=== PATIENT | male | born 1980 | race Hispanic/Latino ===

== ENCOUNTER 2020-09-19 22:41 | Emergency (ER) | payer MEDICAID, SELFPAY ==
[2020-09-19 22:45] VITALS: BP 119/79; PULSE 120; RESP 24; TEMP 37; O2SAT 100
--- NOTE | 2020-09-19 23:12 | PC.NURSE ---
Pt denies CP or SOB at this time.
--- NOTE | 2020-09-19 23:25 | ECG_ITS ---
Measurements Intervals [place] Rate: 117 P: 76 MN: 123 QRS: 62 QRSD: 88 T: 60 QT: 292 QTc: 409 Interpretive Statements SINUS TACHYCARDIA DELAYED PRECORDIAL R/S TRANSITION ABNORMAL ECG Electronically Signed On 09-20-2020 13:40:12 CDT by Lc Burgess D.O.
--- NOTE | 2020-09-20 00:20 | ED.ANXIETY ---
HPI - Anxiety General Chief Complaint: Anxiety Stated Complaint: anxiety attack Time Seen by Provider: 09/19/20 23:59 History of Present Illness HPI narrative: 40 yo male presents to the ED for anxiety. He says that he has had some personal issues recnetly leading to the elevated anxiety. Over the past few days he has felt shaky and been unable to sleep. Related Data Allergies Allergy/AdvReac Type Severity Reaction Status Date / Time Penicillins Allergy Rash Verified 09/19/20 23:16 Review of Systems Review of Systems: All systems reviewed & are unremarkable except as noted in HPI and below Constitutional: Constitutional: Denies chills and Denies fever(s) Eyes: Eyes: Reports no additional eye complaints ENT: Denies dizziness Cardiovascular: Cardiovascular: Denies chest pain Respiratory: Respiratory: Denies dyspnea Gastrointestinal: Gastrointestinal: Reports no additional gastrointestinal complaints Genitourinary: Genitourinary: Reports no additional male genitourinary complaints Musculoskeletal: Musculoskeletal: Reports no additional musculoskeletal complaints Neurologic: Denies dizziness and Denies weakness Psychiatric: Psychiatric: Reports anxiety, Denies homicidal ideation and Denies suicidal ideation Exam Const: General: healthy appearing, no acute distress and alert Orientation/consciousness: patient oriented x3 HENMT: Mouth: Yes dry mucous membranes Eyes: Pupils: Equal, round and reactive pupils present EOM: EOMs intact bilaterally Neck: Neck: normal visual inspection Chest: Chest palpation & inspection: tenderness Resp: Effort & Inspection: normal respiratory effort Auscultation: clear to auscultation bilaterally, no rales, no rhonchi and no wheezes Cardio: Jugular venous distension: no JVD Rate: tachycardic Rhythm: regular rhythm Heart sounds: no murmurs GI: Inspection: non-distended GI Palp: Yes Soft to palpation and No Tenderness to palpation present (GI) Skin: General skin exam: normal color Neuro: General: patient oriented x3 and moves all extremities Speech: normal speech Other: Mild tremors Extrem: General: no edema Psych: Appearance: well kempt Affect: normal affect Course Vital Signs Vital signs: Vital Signs Temperature 37.0 C 09/19/20 22:45 Pulse Rate 120 H 09/19/20 22:45 Respiratory Rate 24 H 09/19/20 22:45 Blood Pressure 119/79 09/19/20 22:45 Pulse Oximetry 100 09/19/20 22:45 Temperature 37.0 C 09/19/20 22:45 Pulse Rate 99 09/20/20 05:17 Respiratory Rate 24 H 09/20/20 05:17 Blood Pressure 129/74 09/20/20 05:17 Pulse Oximetry 98 09/20/20 05:17 MDM - Anxiety MDM Narrative Medical decision making narrative: He appears mildly dehydrated and tremulous. exam is otherwise unremarkable. Feeling better after fluids, ativan and a nap. Differential Diagnosis Differential diagnosis: Likely acute anxiety Medical Records Attestation: I reviewed the patient's medical records. Discharge Plan Discharge Clinical Impression: Anxiety Patient Disposition: Home, Self-Care Condition: Stable Instructions: Anxiety (ED) Prescriptions: New hydroxyzine HCl 25 mg tablet 25 - 50 mg PO TID PRN (Reason: anxiety) Qty: 30 RF: 0 Follow-up/Referrals: Kumar Robin MD [Physician] - PHYSICIAN,ARM REST BUILDER [Primary Care Provider] -
[2020-09-20 00:42] VITALS: BP 124/82; PULSE 98; RESP 15; O2SAT 100
[2020-09-20] MEDS: LORazepam (*CRX) 1 MG TABLET PO (00:43)
[2020-09-20 02:06] VITALS: BP 122/79; PULSE 93; RESP 19
[2020-09-20 04:04] VITALS: BP 113/90; PULSE 83; RESP 15; O2SAT 100
[2020-09-20 05:17] VITALS: BP 129/74; PULSE 99; RESP 24; O2SAT 98
== END 2020-09-20 05:17 | disposition home or self-care (01) ==
PROVIDERS: Emergency Provider Emergency Medicine
DX: F41.9 Anxiety disorder, unspecified (principal); R00.0 Tachycardia, unspecified
CPT/HCPCS: 93005; 99283; A9270

== ENCOUNTER 2021-04-05 11:35 | Emergency (ER) | payer MEDICAID, SELFPAY ==
[2021-04-05 11:48] VITALS: BP 135/82; PULSE 96; RESP 16; TEMP 36.9; O2SAT 100
--- NOTE | 2021-04-05 11:48 | ED.MALEGU ---
HPI - Male Genitourinary General Chief complaint: Urogenital-Male Stated complaint: STD Time Seen by Provider: 04/05/21 11:50 Source: patient, RN notes reviewed, old records reviewed and diver helper (middle school english teacher via phone) Mode of arrival: ambulatory Limitations: language barrier ([place] island[place] ) History of Present Illness HPI Narrative: 41-year-old male presents to the [facility] with painful blisters to his penis. Denies penile discharge. MD Complaint: possible STD exposure and other Related Data Allergies Allergy/AdvReac Type Severity Reaction Status Date / Time ciprofloxacin Allergy Rash Verified 04/05/21 12:02 Penicillins Allergy Rash Verified 04/05/21 12:02 Review of Systems Review of Systems: All systems reviewed & are unremarkable except as noted in HPI and below Constitutional: Constitutional: Reports no additional constitutional complaints, Denies chills and Denies fever(s) Eyes: Eyes: Reports no additional eye complaints ENT: Reports system reviewed and no additional complaints, except as documented Cardiovascular: Cardiovascular: Reports no additional cardiovascular complaints Respiratory: Respiratory: Reports no additional respiratory complaints Gastrointestinal: Gastrointestinal: Reports no additional gastrointestinal complaints Genitourinary: Genitourinary: Reports as per HPI, Reports genital lesions and Reports genital pain Musculoskeletal: Musculoskeletal: Reports no additional musculoskeletal complaints Integumentary/Breasts: Skin/Breast: Reports system reviewed and no additional complaints, except as docu Neurologic: Reports system reviewed and no additional complaints, except as documented Psychiatric: Psychiatric: Reports no additional psychiatric complaints Allergic/Immunologic: Allergic/Immunologic: Reports no additional allergic/immunologic complaints PMFSH Comments At the time of my signature, I reviewed and agree with the nursing past medical, surgical, social, and family history. There is no relevant family history pertinent to the patient complaint. Exam Const: General: cooperative, healthy appearing, no acute distress, well developed, alert and well groomed Nutritional Appearance: well nourished Orientation/consciousness: patient oriented x3 Limitations: no limitations HENMT: Head: normal to inspection Ears: external ears normal Eyes: General: appearance normal, both eyes and all related structures Eyelids: eyelids normal Pupils: Equal, round and reactive pupils present EOM: EOMs intact bilaterally Neck: Neck: normal visual inspection, no lymphadenopathy and no meningeal signs Chest: Chest palpation & inspection: normal inspection of the chest Resp: Effort & Inspection: normal respiratory effort and no use of accessory muscles Auscultation: clear to auscultation bilaterally, no crackles, no rales, no rhonchi and no wheezes Cardio: Rate: regular rate Rhythm: regular rhythm GI: GI Palp: Yes Soft to palpation and No Tenderness to palpation present (GI) Rectal Exam: deferred : General: Yes no CVA tenderness Penis: Yes vesicles (left shaft of penis, x3) and No Localized penile swelling present Scrotum: scrotum normal, no ecchymosis, not erythematous, testes descended bilaterally and no scrotal swelling Testes: Testes normal and no epidiymal tenderness Other: Chaperoned by Tammie LUCIO Back/Spine/Pelvis: Back: no CVA tenderness Skin: General skin exam: normal color Rashes: no rashes Wounds: no wounds Neuro: General: patient oriented x3, moves all extremities, no meningeal signs and no focal motor deficits Cranial nerves: Yes Equal, round and reactive pupils present Speech: normal speech Gait exam (Neuro): Normal gait present Extrem: General: normal to inspection, full ROM and capillary refill normal Psych: Appearance: grossly normal and well kempt Mental Status: mental status grossly normal Affect: normal affect Attitude: cooperative Thought content: Yes Normal
[2021-04-05 12:02] VITALS: BP 135/82; PULSE 96; RESP 16; TEMP 36.9; O2SAT 100
== END 2021-04-05 12:20 | disposition home or self-care (01) ==
PROVIDERS: Emergency Provider Nurse Practitioner
DX: A60.01 Herpesviral infection of penis (principal)
CPT/HCPCS: 87491; 87591; 87661; 99213; G0463

== ENCOUNTER 2021-04-19 16:25 | Emergency (ER) | payer MEDICAID, SELFPAY ==
[2021-04-19 16:34] VITALS: BP 139/86; PULSE 89; RESP 15; TEMP 36.7; O2SAT 100
--- NOTE | 2021-04-19 16:57 | ED.MALEGU ---
HPI - Male Genitourinary General Chief complaint: Urogenital-Male Stated complaint: std exposure Time Seen by Provider: 04/19/21 16:55 History of Present Illness HPI Narrative: 41-year-old male presents the emergency room with a exposure to STD. Patient states she has a lesion on his penis. States that he was at [facility] 2 days ago and was tested for STD panel. Panel came back with a reactive RPR. Has a history of Related Data Allergies Allergy/AdvReac Type Severity Reaction Status Date / Time ciprofloxacin Allergy Rash Verified 04/05/21 12:02 Penicillins Allergy Rash Verified 04/05/21 12:02 Review of Systems Review of Systems: CONSTITUTIONAL: Denies fever, chills, or sweats. EYES: Denies visual changes, redness, or discharge. ENT: Denies rhinorrhea, congestion, sore throat, or otalgia. CARDIOVASCULAR: Denies chest pain, palpitations, or edema. RESPIRATORY: Denies cough or dyspnea. GASTROINTESTINAL: Denies abdominal pain, nausea, vomiting, or diarrhea. GENITOURINARY: Denies dysuria or hematuria. Lesion on penis SKIN: Denies rash or itching. MUSCULOSKELETAL: Denies back pain, joint pain, or myalgia. NEUROLOGIC: Denies headache, numbness, dizziness, or weakness. PSYCHIATRIC: Denies anxiety or depression. Exam Narrative: GENERAL: Well-appearing, well-nourished, and in no acute distress. HEAD: Normocephalic, atraumatic. EYES: PERRLA and EOMI. ENT: Nares clear, no rhinorrhea or epistaxis. Mucous membranes moist. Oropharynx without tonsillar hypertrophy exudate or other lesions. Bilateral TMs pearly candelario nonbulging NECK: Supple. No adenopathy or masses. No carotid bruits or JVD CHEST: Clear to auscultation. No respiratory distress. No wheezes rales or rhonchi HEART: Regular rate and rhythm. No murmur heard. Normal peripheral pulses. ABDOMEN: Soft, nontender, nondistended, normal active bowel sounds. EXTREMITIES: Normal range of motion. No edema. SKIN: Warm, dry, no rash. [place] on penis NEURO: No focal deficits. Alert and oriented x3. PSYCH: Normal mood and affect. Course Vital Signs Vital signs: Vital Signs Temperature 36.7 C 04/19/21 16:34 Pulse Rate 89 04/19/21 16:34 Respiratory Rate 15 04/19/21 16:34 Blood Pressure 139/86 04/19/21 16:34 Pulse Oximetry 100 04/19/21 16:34 Temperature 36.7 C 04/19/21 16:34 Pulse Rate 89 04/19/21 16:34 Respiratory Rate 15 04/19/21 16:34 Blood Pressure 139/86 04/19/21 16:34 Pulse Oximetry 100 04/19/21 16:34 Discharge Plan Discharge Clinical Impression: Syphilis Patient Disposition: Home, Self-Care Condition: Stable Instructions: Antibiotic Form, Syphilis (ED) Prescriptions: New doxycycline monohydrate 100 mg capsule 100 mg PO BID Qty: 28 RF: 0 No Action acyclovir 400 mg tablet 400 mg PO TID 7 Days Qty: 21 RF: 0 Follow-up/Referrals: PHYSICIAN,COMMUNICATION AND OUTREACH MANAGER [Primary Care Provider] - Time of Disposition: 17:01
== END 2021-04-19 17:15 | disposition home or self-care (01) ==
PROVIDERS: Emergency Provider Nurse Practitioner Family
DX: A51.0 Primary genital syphilis (principal)
CPT/HCPCS: 99283

== ENCOUNTER 2021-11-29 16:55 | Outpatient (CLI) | payer MEDICAID, SELFPAY ==
--- NOTE | ~2021-11-29 | XR_ITS ---
XR chest 2V 11/29/2021 17:23 Indication: Cough. Smoker. Procedure: 2 view chest Comparison: No prior studies for comparison. Findings: There is right upper lobe pneumonia. Heart size normal. Left lung clear. No pleural effusio n, edema or pneumothorax. Impression: 1: Right upper lobe pneumonia. Reviewed, dictated and finalized at location A. Impression: 1: Right upper lobe pneumonia.
[2021-11-29 17:46] LABS: Hemoglobin 12.4 g/dL (14.0-18.0); Mean Corpuscular HGB Conc 32.6 g/dl (32-36); Mean Corpuscular Hemoglobin 29.5 pg (26-34); Mean Corpuscular Volume 90.3 fl (80-100); Mean Platelet Volume 10.4 fl (7.4-10.4); Platelet Count Result 312 k/mm3 (150-375); Red Blood Count 4.21 M/mm3 (4.6-6.20); White Blood Count 15.4 K/mm3 (4.5-10.0)
[2021-11-29 17:57] LABS: Alanine Aminotransferase 17 U/L (6-50); Albumin Level 4.1 g/dL (3.5-5.1); Alkaline Phosphatase 66 U/L (38-126); Anion Gap 13 mmol/L (8-16); Aspartate Amino Transferase 20 U/L (17-59); Bilirubin,Total 0.3 mg/dL (0.2-1.3); Blood Urea Nitrogen 11 mg/dL (9-20); Carbon Dioxide 31 mmol/L (22-30); Chloride 98 mmol/L (98-107); Cholesterol 123 mg/dL (0-200); Estimated Glomerular Filt Rate > 60; Glucose 118 mg/dL (65-110); HDL Direct 37 mg/dL; Potassium 3.9 mmol/L (3.4-5.0); Sodium 142 mmol/L (137-145); Triglycerides 81 mg/dL (<150)
[2021-11-29 17:59] LABS: Hemoglobin A1C 5.7 % (<5.7)
[2021-11-29 18:07] LABS: Microalbumin Urine Random < 6.0 mg/L (0-16.7)
[2021-11-29 18:08] LABS: LDL Cholesterol Direct 59 mg/dL; MALB Creatinine Ratio < 7.0 mg/g (0-30)
[2021-11-29 18:38] LABS: HIV 1/2 Ab P24 Ag Result Negative (Negative)
[2021-12-02 09:12] LABS: Rapid Plasma Reagin Non-Reactive (NonReactive)
[2021-12-13 15:16] LABS: H pylori, Urea Breath Not Detected
== END 2021-11-29 16:56 | disposition home or self-care (01) ==
PROVIDERS: PCP Emergency Medicine; Visit Provider Emergency Medicine
DX: F32.9 Major depressive disorder, single episode, unspecified (principal); F41.9 Anxiety disorder, unspecified; R05.9 Cough, unspecified; Z87.891 Personal history of nicotine dependence; J18.8 Other pneumonia, unspecified organism
CPT/HCPCS: 36415; 71046; 80053; 80061; 82043; 83013; 83036; 84439; 84443; 85027; 86592; 86703; 87491; 87591; G0432

== ENCOUNTER 2022-06-13 14:04 | Outpatient (CLI) | payer MEDICAID, SELFPAY ==
--- NOTE | ~2022-06-13 | XR_ITS ---
XR cervical spine 4-5V 06/13/2022 14:35 Indication: Left fingers tingling. Procedure: 4 views of the cervical spine Comparison: No prior studies for comparison. Findings: Normal cervical alignment. Vertebral body and disc heights are preserved. No prevertebral s oft tissue swelling. Odontoid process is normal. Lateral masses normally aligned. Lung apices are nor mal. Impression: 1: No significant abnormality of the cervical spine. Reviewed, dictated and finalized at location A. Impression: 1: No significant abnormality of the cervical spine.
[2022-06-13 15:58] LABS: Basophils Absolute Auto 0.1 K/mm3 (0.0-0.1); Basophils Percent Auto 1.5 % (0.2-1.2); Eosinophils Absolute Auto 0.2 K/mm3 (0-0.3); Eosinophils Percent Auto 2.4 % (0-4.4); Hemoglobin 15.9 g/dL (14.0-18.0); Immature Granulocyte Absolute 0.24 K/mm3 (0.00-0.031); Immature Granulocyte Percent A 2.7 % (0-0.5); Lymphocytes Absolute Auto 2.39 K/mm3 (0.9-3.2); Lymphocytes Percent Auto 27.1 % (18.3-44.2); Mean Corpuscular HGB Conc 33.8 g/dl (32-36); Mean Corpuscular Hemoglobin 30.1 pg (26-34); Mean Platelet Volume 11.5 fl (7.4-10.4); Monocytes Absolute Auto 0.7 K/mm3 (0.1-0.6); Monocytes Percent Auto 7.9 % (2.6-8.5); Neutrophils Absolute Auto 5.2 K/mm3 (1.3-6.7); Neutrophils Percent Auto 58.4 % (45.5-73.1); Platelet Count Result 269 k/mm3 (150-375); Red Blood Count 5.28 M/mm3 (4.6-6.20); Red Cell Distribution Width 13.5 % (11.5-14.5); White Blood Count 8.8 K/mm3 (4.5-10.0)
[2022-06-13 16:43] LABS: Prostate Specific Antigen 1.1 ng/mL (< OR = 4.0)
[2022-06-17 23:09] LABS: H pylori, Urea Breath NOT DETECTED (NOT DETECTED)
== END 2022-06-13 14:05 | disposition home or self-care (01) ==
PROVIDERS: PCP Emergency Medicine; Visit Provider Emergency Medicine
DX: R20.2 Paresthesia of skin (principal); R12 Heartburn; D72.829 Elevated white blood cell count, unspecified
CPT/HCPCS: 36415; 72050; 83013; 84153; 85025; G0103